=== PATIENT | male | born 1990 | race Two or more races ===

== ENCOUNTER 2020-04-07 13:12 | Emergency (ER) | payer MEDICAID, OTHER ==
[~2020-04-07] VITALS: Ht 177.8 cm; Wt 108.0 kg
[2020-04-07 13:41] VITALS: BP 166/93
[2020-04-07] MEDS ORDERED: KETOROLAC TROMETH 30 MG/ML 1ML VIAL IV ONE (15:30)
[2020-04-07] MEDS ORDERED: KETOROLAC TROMETH 60MG/2ML VIAL IM ONE (16:15)
== END 2020-04-07 16:17 | disposition home or self-care (01) ==
LOC: ER 13:12
DX: M54.6 Pain in thoracic spine (principal); R07.81 Pleurodynia; E11.9 Type 2 diabetes mellitus without complications
CPT/HCPCS: 71101; 72070; 81002; 96372; 99284; J1885